=== PATIENT | male | born 1940 | race Caucasian/White ===

== ENCOUNTER 2021-09-26 10:45 | Emergency (ER) | payer SELFPAY ==
[~2021-09-26] VITALS: Ht 177.8 cm; Wt 90.7 kg
[2021-09-26] MEDS ORDERED: ACE650RS PR (14:33)
[2021-09-26] MEDS ORDERED: AZIT1POW12 PO (14:33)
[2021-09-26] MEDS ORDERED: PRED20TA2 PO (14:33)
[2021-09-26 15:00] VITALS: BP 128/76
[2021-09-26] MEDS ORDERED: ACET-1156 PO (15:05)
== END 2021-09-26 15:15 | disposition home or self-care (01) ==
LOC: ER 10:45
DX: U07.1 COVID-19 (principal); Z90.89 Acquired absence of other organs
CPT/HCPCS: 36415; 71046; 87426

== ENCOUNTER 2023-04-16 00:54 | Emergency (ER) | payer SELFPAY ==
[~2023-04-16] VITALS: Ht 177.8 cm; Wt 90.9 kg
[~2023-04-16 00:54] MED LIST: ACE650RS PR; ACET-1156 PO; AZIT1POW12 PO; PRED20TA2 PO
[2023-04-16] MEDS ORDERED: cefTRIAXone SOD 1,000 MG VL IM ONE (03:30)
[2023-04-16 06:54] VITALS: BP 158/99
== END 2023-04-16 06:58 ==
LOC: ER 00:54 → EDBD 00:54 → ER 06:58
DX: S61.502A Unspecified open wound of left wrist, initial encounter (principal); S61.355A Open bite of left ring finger with damage to nail, initial encounter; Y04.1XXA Assault by human bite, initial encounter; Y93.89 Activity, other specified; Y92.89 Other specified places as the place of occurrence of the external cause; Y99.8 Other external cause status
CPT/HCPCS: 73090; 73130; 96372; 99284; J0696